=== PATIENT | female | born 1955 | race African-American/Black ===

== ENCOUNTER 2023-04-11 23:55 | Emergency (ER) | payer OTHER ==
[~2023-04-11] VITALS: Ht 157.5 cm; Wt 51.3 kg
[2023-04-12] MEDS ORDERED: BO1 TP (03:14)
[2023-04-12] MEDS ORDERED: IBUP-2029 MT (03:14)
[2023-04-12] MEDS ORDERED: AMOX1TAB16 MT (03:14)
[2023-04-12] MEDS ORDERED: TETANUS, DIPHTHERIA, PERTUSSIS VAC/PF 0.5ML (>10YR OLD) IM ONE (03:15)
[2023-04-12] MEDS ORDERED: IBUPROFEN 600MG TABLET PO ONE (03:15)
[2023-04-12] MEDS ORDERED: BACITRACIN ZINC OINT UDPKT TOP ONE (03:15)
[2023-04-12] MEDS ORDERED: AMOXICILLIN/POTASSIUM CLAVULANATE 875/125MG TAB PO ONE (03:15)
[2023-04-12 03:49] VITALS: BP 167/91
== END 2023-04-12 03:51 | disposition home or self-care (01) ==
LOC: ER 23:55
DX: S61.431A Puncture wound without foreign body of right hand, initial encounter (principal); I10 Essential (primary) hypertension; Z88.1 Allergy status to other antibiotic agents; W54.0XXA Bitten by dog, initial encounter; Y93.89 Activity, other specified; Y92.89 Other specified places as the place of occurrence of the external cause; Y99.8 Other external cause status
CPT/HCPCS: 90715; 99283